=== PATIENT | male | born 1995 | race Two or more races ===

== ENCOUNTER 2016-12-12 06:20 | Emergency (ER) | payer SELFPAY ==
[~2016-12-12] VITALS: Ht 172.7 cm; Wt 72.6 kg
[2016-12-12] MEDS ORDERED: TDAP [DIPH/PERTUSSIS/TET] 0.5 ML VIAL IM ONE ×2 (07:00→07:48)
[2016-12-12] MEDS ORDERED: LIDOCAINE 1%-EPI 1:100,000 20 ML VIAL TP ONE (07:00)
[2016-12-12 08:52] VITALS: BP 135/79
== END 2016-12-12 08:53 | disposition home or self-care (01) ==
LOC: ER 06:25
DX: S01.511A Laceration without foreign body of lip, initial encounter (principal); S09.90XA Unspecified injury of head, initial encounter; S00.83XA Contusion of other part of head, initial encounter; S80.812A Abrasion, left lower leg, initial encounter; Y08.89XA Assault by other specified means, initial encounter; Y93.89 Activity, other specified; Y92.89 Other specified places as the place of occurrence of the external cause; Y99.8 Other external cause status
CPT/HCPCS: 13151; 70450; 90471; 90715; 99285; A4606; A6402; A6403; Z7610

== ENCOUNTER 2016-12-22 00:36 | Emergency (ER) | payer SELFPAY ==
[~2016-12-22] VITALS: Ht 175.3 cm; Wt 70.3 kg
[2016-12-22 00:38] VITALS: BP 125/74
== END 2016-12-22 01:22 | disposition home or self-care (01) ==
LOC: ER 00:36
DX: Z48.02 Encounter for removal of sutures (principal); S01.511D Laceration without foreign body of lip, subsequent encounter; X58.XXXD Exposure to other specified factors, subsequent encounter
CPT/HCPCS: 99281; A4606; Z7610; Z7502